=== PATIENT | female | born 1975 | race Caucasian/White ===

== ENCOUNTER → 2018-02-19 | Day surgery (SDC) | payer MEDICAID ==
[~2018-02-19] MED LIST: Doxycycline 100 mg Inj ONE; Lactated Ringer's 1,000 ML IV ONE; Midazolam 2 MG/2 ML VIAL ONE; Propofol 10 mg/ml Inj (20 ML) ONE; cefOXitin IV 1 gm in Dextrose 0 GM/0 ML BAG IVPB ONE; cefOXitin IV 2 gm in Dextrose 0 GM/0 ML BAG IVPB ONE
[2018-02-19 06:14] VITALS: O2SAT 100
[2018-02-19 06:49] LABS: BASO % 0.3 % (0.0-2.0); EOS # 0.1 K/uL (0.0-0.7); EOS % 0.9 % (0.0-4.0); HEMOGLOBIN 13.3 g/dL (11.0-16.0); LYMPH # 2.5 K/uL (1.0-4.3); LYMPH % 31.5 % (20.0-40.0); MEAN CELL VOLUME 89.3 fL (81.0-99.0); MEAN CORPUSCULAR HEMOGLOBIN 30.1 pg (27.0-31.0); MEAN CORPUSCULAR HGB CONC 33.7 g/dL (33.0-37.0); MEAN PLATELET VOLUME 7.9 fL (7.2-11.7); MONO # 0.6 K/uL (0.0-0.8); MONO % 7.2 % (0.0-10.0); NEUT # 4.9 K/uL (1.8-7.0); NEUT % 60.1 % (50.0-75.0); RBC 4.41 Mil/uL (3.80-5.20); RED CELL DISTRIBUTION WIDTH 12.7 % (11.5-14.5); WHITE BLOOD COUNT 8.1 K/uL (4.8-10.8)
[2018-02-19 06:56] LABS: SQUAMOUS EPITHIAL < 1 /hpf (0-5); URINE BACTERIA MANY (<OCC); URINE BILIRUBIN NEGATIVE (NEGATIVE); URINE BLOOD NEGATIVE (NEGATIVE); URINE CLARITY Clear (Clear); URINE COLOR Straw (YELLOW); URINE GLUCOSE (UA) NORMAL (Normal); URINE LEUKOCYTE ESTERASE NEG Leu/uL (Negative); URINE PROTEIN NEGATIVE (NEGATIVE); URINE UROBILINOGEN NORMAL mg/dL (0.2-1.0)
[2018-02-19 06:57] LABS: HCG,QUALITATIVE URINE POSITIVE (NEGATIVE)
[2018-02-19 07:06] LABS: ALB/GLOB RATIO 1.5 (1.0-2.1); ALBUMIN 4.7 g/dL (3.5-5.0); ALT/SGPT 28 U/L (9-52); AST/SGOT 35 U/L (14-36); BLOOD UREA NITROGEN 11 mg/dL (7-17); CALCIUM 9.8 mg/dl (8.6-10.4); GFR NON-AFRICAN AMERICAN > 60
--- NOTE | 2018-02-19 08:29 | C.PDOC ---
History Of Present Illness 42-year-old female, 11-weeks, , presents to the emergency department with complaints of pelvic pain when she woke up this morning. Patient states she went to the bathroom and noted bright red vaginal bleeding. She denies any nausea/vomiting, fever, chills, or any other associated symptoms. Time Seen by Provider: 02/19/18 07:14 Chief Complaint (Nursing): Abdominal Pain History Per: Patient History/Exam Limitations: no limitations Onset/Duration Of Symptoms: Hrs Current Symptoms Are (Timing): Still Present Severity: Moderate Location Of Pain/Discomfort: Suprapubic Past Medical History Reviewed: Historical Data, Nursing Documentation, Vital Signs Vital Signs: Last Vital Signs Temp 98.9 F 02/19/18 06:07 Pulse 80 02/19/18 06:07 Resp 16 02/19/18 06:07 BP 154/94 H 02/19/18 06:07 Pulse Ox 100 02/19/18 06:07 - Medical History PMH: No Chronic Diseases Surgical History: Family History: States: No Known Family Hx - Social History Hx Alcohol Use: No Hx Substance Use: No - Immunization History Hx Tetanus Toxoid Vaccination: No Hx Influenza Vaccination: No Hx Pneumococcal Vaccination: No Review Of Systems Constitutional: Negative for: Fever, Chills Cardiovascular: Negative for: Chest Pain Gastrointestinal: Negative for: Vomiting Genitourinary: Positive for: Vaginal Bleeding, Pelvic Pain. Negative for: Dysuria Musculoskeletal: Negative for: Back Pain Neurological: Negative for: Weakness, Numbness, Headache, Dizziness Physical Exam - Physical Exam Appears: Non-toxic, No Acute Distress Skin: Warm, Dry, No Rash Head: Atraumatic, Normacephalic Eye(s): bilateral: Normal Inspection, EOMI Nose: Normal Oral Mucosa: Moist Lips: Normal Appearing Neck: Normal ROM Chest: Symmetrical Cardiovascular: Rhythm Regular, No Murmur Respiratory: Normal Breath Sounds, No Accessory Muscle Use, No Wheezing Gastrointestinal/Abdominal: Bowel Sounds, Soft, Tenderness (mild, suprapubic), No Distention, No Guarding, No Rebound Extremity: Normal ROM, No Deformity Neurological/Psych: Oriented x3, Normal Speech Gait: Steady ED Course And Treatment - Laboratory Results Result Diagrams: 02/19/18 06:45 02/19/18 06:45 Lab Interpretation: No Acute Changes O2 Sat by Pulse Oximetry: 100 Pulse Ox Interpretation: Normal (RA) Medical Decision Making Medical Decision Making: Impression: with pain and bleeding Plan: * Bloodwork * Ultrasound * UA Reassess and Disposition: [phone] US shows demise. Inform patient of the findings and will contact OB carton filling machine operator [phone] Jones OB carton filling machine operator to discuss case who will come to ED to evaluate patient Per Dr Jones the patient will be prepped for OR for D&C. Patient gave consent to surgical procedure Disposition - Disposition Disposition: HOSPITALIZED Disposition Time: 13:47 Condition: GOOD - POA Present On Arrival: None - Clinical Impression Clinical Impression: Missed - Scribe Statement The provider has reviewed the documentation as recorded by the Scribe (Aneesh Topete) All medical record entries made by the Scribe were at my direction and personally dictated by me. I have reviewed the chart and agree that the record accurately reflects my personal performance of the history, physical exam, medical decision making, and the department course for this patient. I have also personally directed, reviewed, and agree with the discharge instructions and disposition. Decision To Admit - Pt Status Changed To: Hospital Disposition Of: SDS- Endo,OR,Cath,IR - . Bed Request Type: CASKET INSPECTOR Admitting Physician: Melissa A Robert Patient Diagnosis: Missed
--- NOTE | 2018-02-19 09:40 | US ---
Date of service: 02/19/2018 PROCEDURE: OB Pelvic Ultrasound HISTORY: lower abd pain w. bleeding LMP: 12/06/2017, suggesting 10 week 5 day gestation. COMPARISON: None available. FINDINGS: UTERUS: Gestational sac: Single intrauterine gestation. Mean sac diameter 3.4 cm suggests estimated gestational age of 8 weeks 3 days. Heart rate: No cardiac activity identified. age (Ultrasound estimated): 6 weeks 6 days based on pole CRL of 0.9 cm. Megan-gestational hemorrhage: No definitive hemorrhage identified however the decidual reaction appears somewhat inhomogeneous in overall echotexture. Date of delivery (Ultrasound estimated) : Not applicable. Uterus measures 11.0 x 6.0 x 8.7 cm. Uterus is expectedly increased in size, however, there is hypoechoic lesion at the lower uterine segment anteriorly toward the left measuring 2.5 x 1.8 x 2.3 cm representing a subserosal fibroid. No additional uterine lesions are identified. CERVIX: Measures 4.5 cm. Long and closed. No cervical abnormality seen. RIGHT OVARY: Measures 4.1 x 2.2 x 3.0 cm. No mass lesion. Normal flow. LEFT OVARY: Measures 3.5 x 2.1 x 3.6 cm. No solid mass. Normal flow. FREE FLUID: None. OTHER FINDINGS: None. IMPRESSION: 1. A single intrauterine gestation is identified with estimated gestational age of 6 weeks 6 days based on crown-rump length mean measurement of 0.9 cm. This discrepant from LMP derived dates. No cardiac activity is identified suggesting demise. Clinically correlate further. 2. Subserosal fibroid 2.5 cm anterior lower uterine segment uterus.
--- NOTE | 2018-02-19 12:18 | CP.PCM.HP ---
History of Present Illness - History of Present Illness History of Present Illness: Patient received on stretcher in Multi-Purpose Room in Emergency Room 42 y.o. , LMP 12/06/17, EGA 11w 2d c/o low back pain and rectal pain, onset 02/18/18; and onset of vaginal spotting 0530 hours. Desired and confirmed . In E.D. ultrasound report: SIUP, CRL c/w 6w 6d, no cardiac activity. HPI: patient states had confirmation of visit with previous [employer] Service Spray Supervisor provider 01/29/18; told to be 7 weeks and reports cardiac activity was mentioned. Patient just moved to [place] 1 1/2 weeks ago from [facility]. Deines nausea, vomiting, lightheadedness, dizziness; difficulty pbreathing or chest pain, palpitaoitns, shosrtness of breath P Ob: C/S x 3, all full term: 1998, male, 8lb, [place]. 1999, female, 5+lb, [facility]. 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 Denies h/o STIs. Most recent Pap 2-3 years ago. Never had a mammogram. PMH: denies PSH: C/S x 3 NKDA Meds: PNV Soc Hx: denies tobacco, illicit drug, EtOH use. (second) x 2 1/2 years. Worked previously as a tongue presser. Fam Hx: Mother alive 67 y.o. Father alive 70 y.o. - no med issues. No knonw fam /o cancer Present on Admission - Present on Admission Any Indicators Present on Admission: No Review of Systems - Review of Systems All systems: reviewed and no additional remarkable complaints except - Reproductive: Female Reproductive:Female: As Per HPI (vaginal spotting) Past Patient History - Infectious Disease Hx of Infectious Diseases: None - Tetanus Immunizations Tetanus Immunization: Unknown - Past Medical History & Family History Past Medical History?: No Past Family History: Reviewed and not pertinent - Past Social History Smoking Status: Never Smoked Alcohol: None Drugs: Denies Home Situation {Lives}: With Family - CARDIAC Hx Cardiac Disorders: No - PULMONARY Hx Respiratory Disorders: No - NEUROLOGICAL Hx Neurological Disorder: No - HEENT Hx HEENT Problems: No - RENAL Hx Chronic Kidney Disease: No - ENDOCRINE/METABOLIC Hx Endocrine Disorders: No - HEMATOLOGICAL/ONCOLOGICAL Hx Blood Disorders: No - INTEGUMENTARY Hx Dermatological Problems: No - MUSCULOSKELETAL/RHEUMATOLOGICAL Hx Musculoskeletal Disorders: No - GASTROINTESTINAL Hx Gastrointestinal Disorders: No - GENITOURINARY/GYNECOLOGICAL Hx Genitourinary Disorders: No LMP:: 12/06/2017 : 4 Para: 3 - PSYCHIATRIC Hx Psychophysiologic Disorder: No Hx Substance Use: No - SURGICAL HISTORY Hx Surgeries: Yes Hx Section: Yes (x3) - ANESTHESIA Hx Anesthesia: Yes Hx Anesthesia Reactions: No Hx Malignant Hyperthermia: No Meds Allergies/Adverse Reactions: Allergies Allergy/AdvReac Type Severity Reaction Status Date / Time No Known Allergies Allergy Unverified 02/19/18 06:27 Physical Exam - Constitutional Appears: Well, No Acute Distress - Head Exam Head Exam: NORMAL INSPECTION - Eye Exam Eye Exam: Normal appearance - ENT Exam ENT Exam: Mucous Membranes Moist - Neck Exam Neck exam: Positive for: Full Rom - Respiratory Exam Respiratory Exam: Clear to Auscultation Bilateral, NORMAL BREATHING PATTERN - Cardiovascular Exam Cardiovascular Exam: REGULAR RHYTHM - GI/Abdominal Exam GI & Abdominal Exam: Normal Bowel Sounds (Healed Pfannenstiel scar), Soft - Rectal Exam Rectal Exam: Deferred - Exam Bimanual exam: NORMAL BIMANUAL EXAM (Anteverted uterus, 10 weeks, mobile, soft. No adnexal masses or tenderness, Cervix - long and closed) - Extremities Exam Extremities exam: Positive for: full ROM, normal inspection - Back Exam Back exam: NORMAL INSPECTION - Neurological Exam Neurological exam: Alert, Normal Gait, Oriented x3 - Skin Skin Exam: Dry, Intact, Normal Color, Warm Results - Vital Signs Recent Vital Signs: Last Vital Signs Temp 98.3 F 02/19/18 10:55 Pulse 81 02/19/18 10:55 Resp 18 02/19/18 10:55 BP 129/85 02/19/18 10:55 Pulse Ox 100 02/19/18 10:55 - Labs Result Diagrams: 02/19/18 06:45 02/19/18 06:45 Labs: Laboratory Results - last 24 hr 02/19/18 02/19/18 02/19/18 06:45 06:45 06:45 WBC 8.1 RBC 4.41 Hgb 13.3 Hct 39.4 MCV 89.3 MCH 30.1 MCHC 33.7 RDW 12.7 Plt Count 273 MPV 7.9 Neut % (Auto) 60.1 Lymph % (Auto) 31.5 Hanson % (Auto) 7.2 Eos % (Auto) 0.9 Baso % (Auto) 0.3 Neut # (Auto) 4.9 Lymph # (Auto) 2.5 Hanson # (Auto) 0.6 Eos # (Auto) 0.1 Baso # (Auto) 0.0 Sodium 140 Potassium 4.0 Chloride 104 Carbon Dioxide 26 Anion Gap 14 BUN 11 Creatinine 0.5 L Est GFR ( Amer) > 60 Est GFR (Non-Af Amer) > 60 Random Glucose 98 Calcium 9.8 Total Bilirubin 0.9 AST 35 ALT 28 Alkaline Phosphatase 65 Total Protein 7.7 Albumin 4.7 Globulin 3.0 Albumin/Globulin Ratio 1.5 Beta HCG, Quant Urine Color Straw Urine Clarity Clear Urine pH 6.0 Ur Specific [place] 1.002 L Urine Protein Negative Urine Glucose (UA) Normal Urine Ketones Negative Urine Blood Negative Urine Nitrate Negative Urine Bilirubin Negative Urine Urobilinogen Normal Ur Leukocyte Esterase Neg Urine WBC (Auto) 1 Urine RBC (Auto) < 1 Ur Squamous Epith Cells < 1 Urine Bacteria Many H Urine HCG, Qual Positive Blood Type Antibody Screen 02/19/18 02/19/18 06:45 06:45 WBC RBC Hgb Hct MCV MCH MCHC RDW Plt Count MPV Neut % (Auto) Lymph % (Auto) Hanson % (Auto) Eos % (Auto) Baso % (Auto) Neut # (Auto) Lymph # (Auto) Hanson # (Auto) Eos # (Auto) Baso # (Auto) Sodium Potassium Chloride Carbon Dioxide Anion Gap BUN Creatinine Est GFR ( Amer) Est GFR (Non-Af Amer) Random Glucose Calcium Total Bilirubin AST ALT Alkaline Phosphatase Total Protein Albumin Globulin Albumin/Globulin Ratio Beta HCG, Quant 57710.00 Urine Color Urine Clarity Urine pH Ur Specific [place] Urine Protein Urine Glucose (UA) Urine Ketones Urine Blood Urine Nitrate Urine Bilirubin Urine Urobilinogen Ur Leukocyte Esterase Urine WBC (Auto) Urine RBC (Auto) Ur Squamous Epith Cells Urine Bacteria Urine HCG, Qual Blood Type O POSITIVE Antibody Screen Negative Assessment & Plan - Assessment and Plan (Free Text) Assessment: 42 y.o. , 11w 2d by LMP, 6w 6d by ultrasound, no cardiac activity - missed . Previuos C/S x 3, AMA. Options D/W patient were as follows: 1) expectant management and await spontaneous expulsion of products of conception; 2) undergo D&C. Patient desires uterine evacuation at this time. R/B/C discussed; patient called her to discuss as she was concerned about the possibility of laparotomy. Patient then decided to proceed with surgical management as discussed. Consent forms were signed, dated, witnessed and placed in chart. Patient ate dinner 2000+ hours 02/18/18; ate an apple 2330 hours. Drank 2 sips of water for ultrasound 0500 hours. Rh (+). Patient is clinically stable. Plan: 1) Admit to SDS 2) NPO 3) IVFs: LR at 125 cc/hour 4) Doxycycline 100 mg IV x 1, nurse practitioner home assessments to O.R. - Date & Time Date: 02/19/18 Time: 11:30
--- NOTE | 2018-02-19 12:39 | PCM.SURG1 ---
Surgeon's Initial Post Op Note - Surgeon's Notes Surgeon: Melissa Jones MD Enhanced Environmental Operator: Not applicable Type of Anesthesia: General Endo Anesthesia Administered By: Efrain garcia MD Pre-Operative Diagnosis: Missed . Previous C/S x 3. Advanced maternal age. Subserosal anterior, lower uterine segment leiomyoma Operative Findings: EUA: AV uterus, 10 weeks, mobile, soft; no adnexal masses. Moderate amount of tissue at suction curettage Post-Operative Diagnosis: Same Operation Performed: Suction/sharp curettage (D&C) Specimen/Specimens Removed: Products of conception Estimated Blood Loss: EBL {In ML}: 50 Blood Products Given: N/A Drains Used: No Drains Post-Op Condition: Good Date of Surgery/Procedure: 02/19/18 Time of Surgery/Procedure: 12:39
[2018-02-19 14:06] VITALS: RESP 16
[2018-02-19 16:19] VITALS: BP 120/67; PULSE 86; TEMP 97.7
--- NOTE | 2018-02-19 22:14 | OP ---
PROCEDURE DATE: 02/19/2018 SURGEON: Melissa Jones MD PART TIME : Not applicable. ANESTHESIOLOGIST: Efrain Oneil MD ANESTHESIA: General with endotracheal intubation. PREOPERATIVE DIAGNOSES: Missed at 6 weeks 6 days. Previous section x3. Advanced maternal age. Subserosal anterior lower uterine segment myoma. POSTOPERATIVE DIAGNOSES : Missed at 6 weeks 6 days. Previous section x3. Advanced maternal age. Subserosal anterior lower uterine segment myoma. OPERATIVE FINDINGS: Examination under anesthesia revealed an anteverted uterus 10 weeks in size. It was mobile, soft with no adnexal masses. The cervical os was closed. At time of suction, moderate amount of tissue was retrieved. OPERATION PERFORMED: Dilation and curettage and a suction/sharp curettage. SPECIMENS: Products of conception. ESTIMATED BLOOD LOSS: 50 mL. COMPLICATIONS: None. DESCRIPTION OF PROCEDURE: The patient was taken to the operating room after having obtained informed consent for the anticipated procedure. This included a discussion of possible risks, complications and of course benefits including but not limited to infection requiring antibiotics, hemorrhage requiring blood transfusion, uterine perforation requiring laparoscopy, laparotomy, repair of any damage to internal organs and removal of any diseased tissue. The patient's questions were answered. Consent forms were signed, dated, witnessed and placed in the chart. The patient was then escorted to the operating room. In the operating room, she was placed on the table in a supine manner and where anesthesia was administered without incident. She was immediately repositioned into the dorsal lithotomy position and her legs were placed in candy-cane stirrups. The patient received doxycycline 100 mg IV piggyback x1. Examination under anesthesia was performed with the findings as above. The patient was subsequently prepped and she was draped in usual sterile fashion. After performing the examination under anesthesia, a weighted speculum was placed in the posterior vaginal vault. Using a Lockett retractor, the cervix was visualized and it was grasped on the anterior lip using single-toothed tenaculum. Serial mechanical dilatation then ensued with the Maykel mechanical dilator. This allowed the introduction of an 8 mm suction curette. The curette was then connected to the suction device, which was then turned on and activated. The uterus was emptied of its contents. Sharp curettage was then performed until a gritty texture was obtained. Repeat suction curettage was performed and the uterus was felt to be contracted around the suction tip. All instruments were removed. Hemostasis was assured. Bimanual exam was performed and the uterus was noted to be contracted and much more firm. The patient was repositioned in the supine position. She was extubated and allowed to arise from anesthesia and transferred to the post anesthesia care unit in stable condition. Melissa MD Robert
== END | disposition home or self-care (01) ==
LOC: C.SDS 05:59 → C.ER 05:59 → C.SDS 10:39
PROVIDERS: ATTEND Obstetrics & Gynecology
DX: O02.1 Missed abortion (principal); O34.11 Maternal care for benign tumor of corpus uteri, first trimester; O26.891 Other specified pregnancy related conditions, first trimester; Z3A.11 11 weeks gestation of pregnancy
CPT/HCPCS: 59820; 76805; 76817; 80053; 81001; 84702; 84703; 85025; 86850; 86900; 88233; 88262; 88305; J1100; J2001; J2250; J2405; J2704; J3010